=== PATIENT | female | born 1995 | race Caucasian/White ===

== ENCOUNTER 2018-04-12 13:10 | Emergency (ER) | payer OTHER ==
[~2018-04-12] VITALS: Ht 167.6 cm; Wt 69.4 kg
[~2018-04-12 13:10] MED LIST: APAP/HYDROCODON1 T13 PO; COL100 PO; DOXYCYCLINE HY100 MG PO; ZOF4 PO
[2018-04-12 13:31] VITALS: Ht 167.6 cm; Wt 69.4 kg
[2018-04-12 14:55] VITALS: BP 104/56
== END 2018-04-12 14:56 | disposition home or self-care (01) ==
LOC: ED 13:10
DX: S39.012A Strain of muscle, fascia and tendon of lower back, initial encounter (principal); F90.9 Attention-deficit hyperactivity disorder, unspecified type; Z98.890 Other specified postprocedural states; W01.0XXA Fall on same level from slipping, tripping and stumbling without subsequent striking against object, initial encounter; Y93.89 Activity, other specified; Y92.89 Other specified places as the place of occurrence of the external cause; Y99.8 Other external cause status